=== PATIENT | male | born 1980 | race Caucasian/White ===

== ENCOUNTER 2019-12-21 12:29 | Emergency (ER) | payer SELFPAY ==
--- NOTE | ~2019-12-21 | XR_ITS ---
EXAMINATION: XR knee LT 3V DATE: 12/21/2019 13:17 INDICATION: Left knee injury TECHNIQUE: Anteroposterior, 2 oblique and crosstable lateral views of the left knee were obtained COMPARISON: None. FINDINGS: Alignment is normal. No fracture. Moderate-sized left knee joint effusion without layering lipohemar throsis. Soft tissues are unremarkable. IMPRESSION: 1. Moderate-sized left knee joint effusion without evident osseous abnormality. Reviewed, dictated and finalized at location A.
[2019-12-21 12:44] VITALS: BP 125/72; PULSE 72; RESP 16; TEMP 36.6; O2SAT 100
--- NOTE | 2019-12-21 13:00 | ED.LOWEXIN ---
HPI - Extremity Injury (Lower) General Chief Complaint: Extremity Injury, Lower Stated Complaint: L KNEE PAIN X TD Time Seen by Provider: 12/21/19 12:50 Source: patient and RN notes reviewed Mode of arrival: ambulatory Limitations: no limitations History of Present Illness HPI Narrative: Pt is a 39 y/o male who presents to the ED with c/o lt knee injury happening this morning. 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 Pt states that when he stood up this morning, he felt what he described as a rubber band stretching in his lt knee. He notes that he has had pain in his lt knee ever since the incident, stating that the majority of his pain is located in his medial and lateral lt knee. Pt denies any numbness/tingling or other symptoms. He states that he took 2 Tylenol roughly 45 minutes ago for his pain, but denies having any relief. MD complaint: knee injury Onset (ago): day(s) (1) Injury: Left: knee Place: home Relieving factors: nothing Context: other (standing up) Associated symptoms: other (lt knee pain) Other symptoms: none Treatments prior to arrival: other (Tylenol) Related Data Home Medications Medication Instructions Recorded Confirmed No Home Medications 12/21/19 12/21/19 Allergies Allergy/AdvReac Type Severity Reaction Status Date / Time SHELLFISH Allergy Unknown Uncoded 12/21/19 13:24 BOLOGNA AdvReac Unknown Uncoded 12/21/19 13:24 Review of Systems Review of Systems: All systems reviewed & are unremarkable except as noted in HPI and below Musculoskeletal: Musculoskeletal: Reports arthralgias (lt knee pain) Neurologic: Denies numbness and Denies tingling PMFSH Past Medical History Medical History Umbilical hernia Surgical History Surgical History History of testicular surgery Hx of appendectomy Hx of cholecystectomy Hx of umbilical hernia repair Social History Social History Smoking packs per day: 1 Smoking cigarettes per day: 20.0 Smoking status: Current every day smoker Exam Narrative: Exam Narrative: General appearance: Well-developed, well-nourished Skin: Normal color Chest and respiratory: Airway patent, no respiratory distress, no accessory muscle use Heart: Regular rate/rhythm Musculoskeletal: Slight diffuse tenderness of left knee, slight swelling, no bruises, no deformity, limited range of motion. Neurologic: Alert and oriented ?3, ROLL TENSION TESTER is normal as tested, no gross motor deficit Course Course Emergency Course: Unchanged Vital Signs Vital signs: Vital Signs Temperature 36.6 C 12/21/19 12:44 Pulse Rate 72 12/21/19 12:44 Respiratory Rate 16 12/21/19 12:44 Blood Pressure 125/72 12/21/19 12:44 Pulse Oximetry 100 12/21/19 12:44 Temperature 36.6 C 12/21/19 12:44 Pulse Rate 72 12/21/19 12:44 Respiratory Rate 16 12/21/19 12:44 Blood Pressure 125/72 12/21/19 12:44 Pulse Oximetry 100 12/21/19 12:44 Procedures Joint Aspiration/Injection Joint Asp./Inject. 1: Joint Aspiration Date: 12/21/19 Joint Aspiration Time: 14:47 Time Out Performed: Yes (30 minutes) Side of body: left Joint Aspirated: knee Ultrasound Guidance: No Skin Prep: sterile prep and drape Local Anesthetic: lidocaine 1% and with epi Amount of anesthesia used (mL): 5 Needle Size Used: 18G Fluid Obtained: bloody Total fluid obtained (mL): 12 Additional Comments: Patient tolerated the procedure well MDM - Extremity Injury (Lower) MDM Narrative Medical decision making narrative: History
[2019-12-21] MEDS: ACETAMINOPHEN 325 MG TABLET 650 MG PO (13:20)
[2019-12-21] MEDS: IBUPROFEN 600 MG TABLET PO (13:21)
--- NOTE | 2019-12-21 14:11 | PC.NURSE ---
PT C/O CONTINUED PAIN IN THE AFFECTED KNEE. VERBAL ORDER FOR 5-325 NORCO STAT.
--- NOTE | 2019-12-21 14:39 | PC.NURSE ---
VIKAS FLETCHER AT BEDSIDE DRAINING PT KNEE.
[2019-12-21 15:04] VITALS: BP 138/75; PULSE 78; RESP 18; O2SAT 100
--- NOTE | 2019-12-21 15:04 | PC.NURSE ---
KNEE FLUID SENT TO LAB.
[2019-12-21 15:58] LABS: Crystals Synovial Fluid None Seen (None Seen)
[2019-12-21 15:59] LABS: Appearance Synovial Fluid Bloody (Clear); Color Synovial Fluid Red (Colorless); Source Synovial Fluid Synovial fluid
[2019-12-21 16:01] LABS: Lymphocytes Synovial Fluid 1 %; Monocytes Synovial Fluid 3 %; Neutrophils Synovial Fluid 96 % (0-25)
[2019-12-23 12:00] LABS: Glucose Synovial Fluid 57 mg/dL
== END 2019-12-21 15:05 | disposition home or self-care (01) ==
PROVIDERS: Emergency Provider Emergency Medicine
DX: S83.92XA Sprain of unspecified site of left knee, initial encounter (principal); M25.469 Effusion, unspecified knee; X58.XXXA Exposure to other specified factors, initial encounter
CPT/HCPCS: 20610; 73562; 82945; 88108; 89051; 89060; 99283; A9270

== ENCOUNTER 2020-01-21 14:34 | Emergency (ER) | payer OTHER, SELFPAY ==
--- NOTE | ~2020-01-21 | XR_ITS ---
XR chest 2V DATE: 01/21/2020 15:34 INDICATION: Cough, sinus pressure, sore throat TECHNIQUE: PA and lateral views COMPARISON: None FINDINGS: Normal heart size. No hilar or mediastinal enlargement. No pulmonary infiltrate or consolid ation, pleural effusion or pulmonary vascular congestion or pneumothorax. Surgical clips, right upper quadrant, consistent with cholecystectomy. IMPRESSION: No active cardiopulmonary disease Status post cholecystectomy Reviewed, dictated and finalized at location A.
[2020-01-21 14:39] VITALS: BP 118/86; PULSE 98; RESP 20; TEMP 37.1; O2SAT 98
--- NOTE | 2020-01-21 14:55 | ED.URI ---
HPI - URI/Sore Throat General Chief Complaint: Weakness Stated Complaint: chills/st/diff breathing Time Seen by Provider: 01/21/20 14:38 History of Present Illness HPI Narrative: Pt c/o sob, cough, nasal congestion, subjective fever chills, and fatigue started today. Exacerbating factors: nothing Relieving factors: nothing Treatments prior to arrival: none Related Data Allergies Allergy/AdvReac Type Severity Reaction Status Date / Time SHELLFISH Allergy Unknown Uncoded 12/21/19 13:24 BOLOGNA AdvReac Unknown Uncoded 12/21/19 13:24 Review of Systems Review of Systems: All systems reviewed & are unremarkable except as noted in HPI and below Constitutional: Constitutional: Denies body ache(s), Denies excessive sweating, Denies headache(s), Denies lethargy, Denies malaise, Denies weakness and Denies weight loss Eyes: Eyes: Denies blurry vision, Denies change in vision and Denies loss of vision ENT: Denies dizziness, Denies ear discharge, Denies headache(s), Denies lip swelling, Denies epistaxis, Denies nasal congestion, Denies neck pain, Denies throat swelling and Denies tongue swelling Cardiovascular: Cardiovascular: Denies chest pain, Denies chest pain at rest, Denies chest pain with activity, Denies diaphoresis, Denies rapid heart rate, Denies edema, Denies irregular heart rhythm, Denies lightheadedness, Denies palpitations and Denies dyspnea on exertion Respiratory: Respiratory: Denies chest congestion, Denies cough, Denies hemoptysis and Denies dyspnea on exertion Gastrointestinal: Gastrointestinal: Denies abdominal pain, Denies melena, Denies hematochezia, Denies diarrhea, Denies nausea, Denies vomiting and Denies hematemesis Musculoskeletal: Musculoskeletal: Denies abnormal gait, Denies deformity, Denies joint swelling, Denies limited range of motion, Denies neck pain and Denies numbness Neurologic: Denies Abnormal speech present, Denies abnormal gait, Denies confusion, Denies dizziness, Denies headache(s), Denies focal weakness, Denies loss of vision, Denies numbness, Denies Other visual disturbances, Denies Sensory deficit (Neuro) and Denies weakness Psychiatric: Psychiatric: Denies confusion, Denies depression, Denies auditory hallucinations, Denies homicidal ideation and Denies suicidal ideation Endocrine: Endocrine: Denies cold intolerance, Denies excessive sweating, Denies fatigue, Denies heat intolerance and Denies palpitations Hematologic/Lymphatic: Hematologic/Lymphatic: Denies easy bleeding and Denies easy bruising Allergic/Immunologic: Allergic/Immunologic: Denies lip swelling, Denies throat swelling and Denies tongue swelling [facility] Social History Social History Smoking packs per day: 1 Smoking cigarettes per day: 20.0 Smoking status: Current every day smoker Gender identity (if verbalized by the patient): Male Exam Const: General: cooperative, healthy appearing, comfortable, no acute distress, well developed, alert and awake; No confusion Orientation/consciousness: oriented to person, oriented to place, oriented to time, patient oriented x3 and No confusion Limitations: no limitations HENMT: Head: normal to inspection, normocephalic and atraumatic Ears: hearing grossly normal bilaterally, TM normal on the right and TM normal on the left General nose exam: Normal external nose present, Normal nares present and No nasal discharge present Face and sinus: normal facial exam Mouth: Yes Normal oral and palatal mucosa present, Yes lip normal, Yes tongue normal and Yes oropharynx normal Throat: posterior oropharynx normal, tonsils normal and uvula midline Eyes: General: appearance normal, both eyes and all related structures Pupils: Equal, round and reactive pupils present EOM: EOMs intact bilaterally Neck: Neck: normal visual inspection, full ROM, no lymphadenopathy and no meningeal signs Chest: Chest palpation & inspection: normal inspection of the ches
--- NOTE | 2020-01-21 16:09 | ECG_ITS ---
Measurements Intervals [place] Rate: 99 P: 57 [place]: 145 QRS: 47 QRSD: 106 T: 28 QT: 317 QTc: 408 Interpretive Statements SINUS RHYTHM POSSIBLE LEFT ATRIAL ENLARGEMENT INCOMPLETE RIGHT BUNDLE BRANCH BLOCK BASELINE WANDER- I, II, AVR BORDERLINE ECG Electronically Signed On 01-21-2020 16:32:15 CDT by Kong Gipson D.O.
[2020-01-21 16:10] VITALS: BP 156/84; PULSE 88; RESP 16; O2SAT 98
[2020-01-22 08:04] LABS: SARS-CoV-2 RNA PCR Negative
== END 2020-01-21 16:11 | disposition home or self-care (01) ==
PROVIDERS: Emergency Provider Emergency Medicine
DX: B34.9 Viral infection, unspecified (principal); Z20.828 Contact with and (suspected) exposure to other viral communicable diseases; F17.210 Nicotine dependence, cigarettes, uncomplicated; I45.10 Unspecified right bundle-branch block; R94.31 Abnormal electrocardiogram [ECG] [EKG]
CPT/HCPCS: 71046; 87635; 93005; 99283; C9803; U0003

== ENCOUNTER 2020-04-02 11:51 | Emergency (ER) | payer SELFPAY ==
[2020-04-02 12:02] VITALS: BP 125/103; PULSE 84; RESP 18; TEMP 37.3; O2SAT 100
[2020-04-02] MEDS: cefTRIAXone 250 MG VIAL IM (12:57)
[2020-04-02] MEDS: LIDOCAINE HCL 1% LOCAL INJ 20 ML VIAL (12:57)
[2020-04-02] MEDS: AZITHROMYCIN 250 MG TABLET 1000 MG PO (12:57)
[2020-04-02] MEDS: metroNIDAZOLE 250 MG TABLET 2000 MG PO (13:00)
[2020-04-02 13:02] LABS: Add Urine Microscopic? YES; Appearance Urine Cloudy (Clear); Bilirubin Urine Negative (Negative); Blood Urine 1+ (Negative); Color Urine Yellow (Yellow); Glucose Urine UA Negative (Negative); Ketones Urine Negative (Negative); Leukocyte Esterase Ur 3+ LEU/UL (Negative); Mucus Urine Rare /lpf; Nitrate Urine Negative (Negative); Protein Urine Negative (Negative); Specific Grav Ur 1.025 (1.001-1.035); Squamous Epithelial Cell Urine Rare /hpf (Few); Urobilinogen Urine Negative mg/dL (<2.0); WBC Urine >75 /hpf
--- NOTE | 2020-04-02 14:02 | ED.GENADULT ---
HPI - General Adult General Chief complaint: Unspecified Stated complaint: midget in my pants kicking me in the balls Time Seen by Provider: 04/02/20 12:36 Source: patient Mode of arrival: ambulatory Limitations: no limitations History of Present Illness HPI narrative: Patient is a 39-year-old male who presents to emergency department for evaluation concerning STD symptoms noting discharge and pain in the testicles after having intercourse with his last night who has been in another relationship that he found out recently patient upon presentation to emergency department notes he would like to be tested and treated denies similar occurrence in the past or other symptoms Related Data Home Medications Medication Instructions Recorded Confirmed No Home Medications 04/02/20 04/02/20 Allergies Allergy/AdvReac Type Severity Reaction Status Date / Time SHELLFISH Allergy Unknown Uncoded 04/02/20 12:06 BOLOGNA AdvReac Unknown Uncoded 04/02/20 12:06 Review of Systems Review of Systems: All systems reviewed & are unremarkable except as noted in HPI and below PMFSH Past Medical History Medical History Umbilical hernia Surgical History Surgical History History of testicular surgery Hx of appendectomy Hx of cholecystectomy Hx of umbilical hernia repair Social History Social History Smoking packs per day: 1 Smoking cigarettes per day: 20.0 Smoking status: Current every day smoker Gender identity (if verbalized by the patient): Male Exam Narrative: Exam Narrative: GENERAL: Well-appearing, well-nourished, and in no acute distress. HEAD: Normocephalic, atraumatic. EYES: PERRLA and EOMI. ENT: Nares clear, no rhinorrhea or epistaxis. Mucous membranes moist. CHEST: Clear to auscultation. No respiratory distress. No wheezes rales or rhonchi HEART: Regular rate and rhythm. No murmur heard. Normal peripheral pulses. ABDOMEN: Soft, nontender, nondistended EXTREMITIES: Normal range of motion. No edema. SKIN: Warm, dry, no rash. NEURO: No focal deficits. Alert and oriented x3. cranial nerves II through XII grossly intact PSYCH: Normal mood and affect. Course Course Emergency Course: Patient in the room at this time aware of case findings treatment plan and diagnosis was tested and treated given referral for primary care and urology Vital Signs Vital signs: Vital Signs Temperature 99.1 F 04/02/20 12:02 Pulse Rate 84 04/02/20 12:02 Respiratory Rate 18 04/02/20 12:02 Blood Pressure 125/103 H 04/02/20 12:02 Pulse Oximetry 100 04/02/20 12:02 Temperature 99.1 F 04/02/20 12:02 Pulse Rate 84 04/02/20 12:02 Respiratory Rate 18 04/02/20 12:02 Blood Pressure 125/103 H 04/02/20 12:02 Pulse Oximetry 100 04/02/20 12:02 Medical Decision Making MDM Narrative Medical decision making narrative: Patient tested and treated for STDs advised to follow with primary care and urology for further testing considerations and for follow-up Vital Signs Vital Signs: Vital Signs Temperature 99.1 F 04/02/20 12:02 Pulse Rate 84 04/02/20 12:02 Respiratory Rate 18 04/02/20 12:02 Blood Pressure 125/103 H 04/02/20 12:02 Pulse Oximetry 100 04/02/20 12:02 Temperature 99.1 F 04/02/20 12:02 Pulse Rate 84 04/02/20 12:02 Respiratory Rate 18 04/02/20 12:02 Blood Pressure 125/103 H 04/02/20 12:02 Pulse Oximetry 100 04/02/20 12:02 Lab Data Labs: Lab Results 04/02/20 04/02/20 Range/Units 12:45 12:45 Urine Color Yellow (Yellow) Urine Appearance Cloudy H (Clear) Urine pH 5.0 (5.0-9.0) Ur Specific [place] 1.025 (1.001-1.035) Urine Protein Negative (Negative) mg/dL Urine Glucose (UA) Negative (Negative) mg/dL Urine Ketones Negative (Negative) mg/dL Ur Blood (Ma
--- NOTE | 2020-04-02 15:02 | PC.NURSE ---
This RN back into room to explain that because pt had emesis earlier will send home on a prescription, and pt has left the building. Call to pt's home number listed and states that number is not available. Pt's second listed number contacted at [phone]. Woman answers, hands the phone to another person who claims to be the patient. Explained medications are available at the pharmacy listed. The patient answers thank you and is clearly someone pretending to be the patient. This RN hung up on caller. Note the patient leaving the waiting room and walking around outside. Explained to the patient that the prescription is available at the pharmacy and that the number I called was clearly not him. Pt verb understanding.
== END 2020-04-02 14:55 | disposition home or self-care (01) ==
PROVIDERS: Emergency Medicine Emergency Medical Services; Emergency Provider Emergency Medicine
DX: N34.2 Other urethritis (principal); F17.210 Nicotine dependence, cigarettes, uncomplicated
CPT/HCPCS: 81001; 87086; 87491; 87591; 96372; 99283; A9270; J0696

== ENCOUNTER 2020-08-10 19:34 | Emergency (ER) | payer OTHER, SELFPAY ==
--- NOTE | ~2020-08-10 | XR_ITS ---
EXAMINATION: XR chest 1V portable DATE: 08/10/2020 20:39 INDICATION: Cough, shortness of breath and fever TECHNIQUE: frontal view of the chest was obtained. COMPARISON: Chest radiograph dated 01/21/2020 FINDINGS: Unchanged minimal linear atelectasis/scarring near the left costophrenic angle. No new airspace opaci ties, pulmonary edema, pleural effusion or pneumothorax. The cardiomediastinal silhouette is normal. Visualized bones and soft tissues are unremarkable. IMPRESSION: 1. No acute cardiopulmonary disease. Reviewed, dictated and finalized at location H. L RECORDS CLERK
[2020-08-10 19:39] VITALS: BP 124/62; PULSE 93; RESP 18; TEMP 37.4; O2SAT 96
[2020-08-10 21:02] LABS: Basophils Percent Auto 0.3 % (0.2-1.2); Eosinophils Percent Auto 0.1 % (0-4.4); Hematocrit 41.2 % (42.0-52.0); Hemoglobin 14.2 g/dL (14.0-18.0); Immature Granulocyte Absolute 0.04 K/mm3 (0.00-0.031); Immature Granulocyte Percent A 0.3 % (0-0.5); Lymphocytes Absolute Auto 0.79 K/mm3 (0.9-3.2); Lymphocytes Percent Auto 6.1 % (18.3-44.2); Mean Corpuscular HGB Conc 34.5 g/dl (32-36); Mean Corpuscular Hemoglobin 30.1 pg (26-34); Mean Corpuscular Volume 87.3 fl (80-100); Mean Platelet Volume 10.4 fl (7.4-10.4); Monocytes Absolute Auto 0.7 K/mm3 (0.1-0.6); Monocytes Percent Auto 5.7 % (2.6-8.5); Neutrophils Absolute Auto 11.3 K/mm3 (1.3-6.7); Neutrophils Percent Auto 87.5 % (45.5-73.1); Platelet Count Result 188 k/mm3 (150-375); Red Blood Count 4.72 M/mm3 (4.6-6.20); Red Cell Distribution Width 13.4 % (11.5-14.5)
[2020-08-10 21:18] LABS: Add Urine Microscopic? YES; Appearance Urine Clear (Clear); Bacteria Urine Trace /hpf; Bilirubin Urine Negative (Negative); Blood Urine Negative (Negative); Color Urine Yellow (Yellow); Glucose Urine UA Negative (Negative); Ketones Urine Negative (Negative); Leukocyte Esterase Ur Negative LEU/UL (Negative); Mucus Urine Rare /lpf; Nitrate Urine Negative (Negative); Protein Urine 1+ mg/dL (Negative); RBC Urine 0-2 /hpf (0-2); Specific Grav Ur 1.025 (1.001-1.035); Urobilinogen Urine Negative mg/dL (<2.0); WBC Urine 0-3 /hpf
[2020-08-10 21:20] LABS: Alanine Aminotransferase 41 U/L (4-50); Albumin Level 4.3 g/dL (3.5-5.1); Alkaline Phosphatase 88 U/L (38-126); Anion Gap 9 mmol/L (8-16); Aspartate Amino Transferase 41 U/L (17-59); Bilirubin,Total 0.5 mg/dL (0.2-1.3); Blood Urea Nitrogen 14 mg/dL (9-20); Calcium 9.1 mg/dL (8.4-10.2); Carbon Dioxide 26 mmol/L (22-30); Chloride 99 mmol/L (98-107); Estimated CRCL calculation 97 ml/min; Estimated Glomerular Filt Rate > 60; Glucose 114 mg/dL (75-110); Sodium 134 mmol/L (137-145)
--- NOTE | 2020-08-10 21:23 | ED.FEVER ---
HPI - Fever General Chief Complaint: Fever Stated Complaint: fever; FUENTES; Sz; Dehydrated; Weak Time Seen by Provider: 08/10/20 19:46 Source: patient Mode of arrival: ambulatory Limitations: no limitations History of Present Illness HPI Narrative: 39-year-old male Complains of a 1 day history of fevers to as much as 104 degrees He has a mild sore throat epigastric abdominal pain and nausea and body aches No vomiting no diarrhea no urinary symptoms not coughing Not around anybody with similar symptoms that he knows of MD elicited complaint: fever and malaise Related Data Allergies Allergy/AdvReac Type Severity Reaction Status Date / Time SHELLFISH Allergy Unknown Uncoded 04/02/20 12:06 BOLOGNA AdvReac Unknown Uncoded 04/02/20 12:06 Review of Systems Review of Systems: All systems reviewed & are unremarkable except as noted in HPI and below Constitutional: Constitutional: Reports chills, Reports fatigue, Reports fever(s), Denies headache(s) and Denies weakness Eyes: Eyes: Reports no additional eye complaints and Denies change in vision ENT: Denies headache(s), Denies epistaxis, Denies nasal congestion and Reports sore throat Cardiovascular: Cardiovascular: Denies chest pain, Denies leg edema, Denies palpitations and Denies dyspnea Respiratory: Respiratory: Denies cough and Denies dyspnea Gastrointestinal: Gastrointestinal: Reports abdominal pain, Denies diarrhea, Reports nausea and Denies vomiting Genitourinary: Genitourinary: Denies hematuria, Denies dysuria and Denies urinary frequency Musculoskeletal: Musculoskeletal: Reports myalgias, Denies deformity, Denies arthralgias, Denies joint swelling, Denies muscle weakness and Denies numbness Integumentary/Breasts: Skin/Breast: Denies rash and Denies wounds Neurologic: Reports headache(s), Denies focal weakness, Denies numbness and Denies weakness Psychiatric: Psychiatric: Reports no additional psychiatric complaints Endocrine: Endocrine: Denies fatigue and Denies palpitations Hematologic/Lymphatic: Hematologic/Lymphatic: Denies easy bleeding and Denies easy bruising Allergic/Immunologic: Allergic/Immunologic: Denies wheezing PMFSH Past Medical History Medical History (Updated 08/10/20 @ 22:27 by Vinicio Estes MD) Umbilical hernia Surgical History Surgical History History of testicular surgery Hx of appendectomy Hx of cholecystectomy Hx of umbilical hernia repair Social History Social History Smoking packs per day: 1 Smoking cigarettes per day: 20.0 Smoking status: Current every day smoker Gender identity (if verbalized by the patient): Male Exam Const: General: no acute distress, well developed and awake Nutritional Appearance: well nourished Orientation/consciousness: patient oriented x3 (alert) Limitations: no limitations HENMT: Head: normocephalic and atraumatic Ears: external ears normal General nose exam: No nasal discharge present and no epistaxis Face and sinus: face symmetric Mouth: Yes moist mucous membranes Throat: posterior oropharynx normal Eyes: Conjunctivae: conjunctivae normal Sclera: sclerae normal EOM: EOMs intact bilaterally Neck: Neck: normal visual inspection, no lymphadenopathy, supple and no JVD Chest: Chest palpation & inspection: deferred Resp: Effort & Inspection: normal respiratory effort Auscultation: clear to auscultation bilaterally, no rales, no rhonchi, no wheezes and other (BS =) Cardio: Rate: regular rate Rhythm: regular rhythm Heart sounds: no gallops and no murmurs GI: Inspection: normal to inspection GI Palp: Yes Soft to palpation, Yes Tenderness to palpation present (GI) (Mild, epigastric), No Guarding due to palpation present (GI) and No Rebound tenderness present : General: Yes no CVA tenderness Back/Spine/Pelvis: Back: no CVA tenderness Thoracic/Lumbar Spine:
[2020-08-10] MEDS: LACTATED RINGERS 1,000 ML 999 ML IV CONT (21:34)
[2020-08-10] MEDS: ACETAMINOPHEN 500 MG TABLET 1000 MG PO (21:35)
[2020-08-10 22:37] VITALS: BP 116/61; PULSE 94; RESP 18; TEMP 37.2; O2SAT 99
[2020-08-11 14:03] LABS: SARS-CoV-2 RNA PCR Positive
== END 2020-08-10 22:37 | disposition home or self-care (01) ==
PROVIDERS: Emergency Provider Emergency Medicine
DX: U07.1 COVID-19 (principal); R50.9 Fever, unspecified; F17.210 Nicotine dependence, cigarettes, uncomplicated
CPT/HCPCS: 36415; 71045; 80053; 81001; 85025; 87070; 87147; 87635; 87804; 87880; 96360; 99283; A9270; C9803; J7120; U0003

== ENCOUNTER 2020-10-06 22:02 | Emergency (ER) | payer SELFPAY ==
--- NOTE | ~2020-10-06 | CT_ITS ---
EXAMINATION: CT abdomen pelvis w con DATE: 10/06/2020 23:25 INDICATION: Lower abdominal pain. TECHNIQUE: Computed tomography (CT) of the abdomen and pelvis was performed with 100 mL Omnipaque-350 intravenous contrast. Automated exposure control and iterative reconstruction technique were employe d. The dose-length product was 598.66 mGy-cm. COMPARISON: None FINDINGS: 4 mm right lower lobe nodule. Heart size is normal. No pericardial or pleural effusion. Cholecystecto my clips at the gallbladder fossa. Liver, spleen, pancreas, bilateral adrenal glands and kidneys are normal. Postoperative changes at the cecum with nonvisualized appendix consistent with prior appendec aurea. No abnormal bowel wall thickening or obstruction. Decompressed bladder is normal. Tiny fat-cont aining left inguinal hernia. No free intraperitoneal gas or fluid. No pathologically enlarged abdomin al or pelvic lymphadenopathy. A few small scattered bone islands at the pelvis and proximal femurs. IMPRESSION: 1. No acute intra-abdominal/pelvic process. Reviewed, dictated and finalized at location A. STAMPER
[2020-10-06 22:04] VITALS: BP 128/80; PULSE 91; RESP 14; TEMP 36.8; O2SAT 94
[2020-10-06 22:44] LABS: Basophils Absolute Auto 0.1 K/mm3 (0.0-0.1); Basophils Percent Auto 0.6 % (0.2-1.2); Eosinophils Absolute Auto 0.2 K/mm3 (0-0.3); Hematocrit 44.1 % (42.0-52.0); Hemoglobin 15.2 g/dL (14.0-18.0); Immature Granulocyte Absolute 0.02 K/mm3 (0.00-0.031); Immature Granulocyte Percent A 0.2 % (0-0.5); Lymphocytes Absolute Auto 3.45 K/mm3 (0.9-3.2); Lymphocytes Percent Auto 38.9 % (18.3-44.2); Mean Corpuscular HGB Conc 34.5 g/dl (32-36); Mean Corpuscular Hemoglobin 30.1 pg (26-34); Mean Corpuscular Volume 87.3 fl (80-100); Mean Platelet Volume 10.4 fl (7.4-10.4); Monocytes Absolute Auto 0.6 K/mm3 (0.1-0.6); Monocytes Percent Auto 6.2 % (2.6-8.5); Neutrophils Absolute Auto 4.6 K/mm3 (1.3-6.7); Neutrophils Percent Auto 52.1 % (45.5-73.1); Platelet Count Result 214 k/mm3 (150-375); Red Blood Count 5.05 M/mm3 (4.6-6.20); Red Cell Distribution Width 13.2 % (11.5-14.5); White Blood Count 8.9 K/mm3 (4.5-10.0)
[2020-10-06 22:48] LABS: Add Urine Microscopic? YES; Appearance Urine Clear (Clear); Bacteria Urine Trace /hpf; Bilirubin Urine Negative (Negative); Blood Urine Negative (Negative); Color Urine Yellow (Yellow); Glucose Urine UA Negative (Negative); Ketones Urine Negative (Negative); Leukocyte Esterase Ur Trace LEU/UL (Negative); Mucus Urine Few /lpf; Nitrate Urine Negative (Negative); Protein Urine 1+ mg/dL (Negative); RBC Urine 0-2 /hpf (0-2); Squamous Epithelial Cell Urine Rare /hpf (Few)
--- NOTE | 2020-10-06 22:52 | ED.ABDPAIN ---
HPI - Abdominal Pain General Chief Complaint: Abdominal Pain Stated Complaint: abd pain Time Seen by Provider: 10/06/20 22:39 History of Present Illness HPI narrative: 39 yo male w/ h/o IBS, appendectomy, cholecystectomy presents to the ED for abdominal pain. Lower abdominal pain for the past 4 days. Cramping in quality. Radiates to the right arm. Associated with nausea and diarrhea. Recently recovered from COVID-19, which he reports was largely asymptomatic. No fever, vomiting, chest pain, SOB. Related Data Allergies Allergy/AdvReac Type Severity Reaction Status Date / Time SHELLFISH Allergy Unknown Uncoded 04/02/20 12:06 BOLOGNA AdvReac Unknown Uncoded 04/02/20 12:06 Review of Systems Review of Systems: All systems reviewed & are unremarkable except as noted in HPI and below Constitutional: Constitutional: Denies fever(s) and Denies weakness ENT: Denies sore throat Cardiovascular: Cardiovascular: Denies chest pain Respiratory: Respiratory: Denies dyspnea Gastrointestinal: Gastrointestinal: Reports abdominal pain, Reports diarrhea, Reports nausea and Denies vomiting Genitourinary: Genitourinary: Denies hematuria and Denies dysuria Musculoskeletal: Musculoskeletal: Denies back pain Neurologic: Denies numbness and Denies weakness [facility] Past Medical History Medical History (Updated 10/07/20 @ 00:12 by Samir Jade MD) Umbilical hernia Surgical History Surgical History History of testicular surgery Hx of appendectomy Hx of cholecystectomy Hx of umbilical hernia repair Social History Social History Smoking packs per day: 1 Smoking cigarettes per day: 20.0 Smoking status: Current every day smoker Gender identity (if verbalized by the patient): Male Exam Const: General: healthy appearing, no acute distress and alert Orientation/consciousness: patient oriented x3 HENMT: Head: normal to inspection Resp: Effort & Inspection: normal respiratory effort Auscultation: clear to auscultation bilaterally Cardio: Rate: regular rate Rhythm: regular rhythm GI: Inspection: non-distended GI Palp: Yes Soft to palpation, Yes Tenderness to palpation present (GI) (diffuse, mild), No Guarding due to palpation present (GI) and No Rebound tenderness present Auscultation: normal bowel sounds Skin: General skin exam: normal color Neuro: General: patient oriented x3, moves all extremities and CN's II-XI intact bilaterally Speech: normal speech Gait exam (Neuro): Normal gait present Extrem: General: normal to inspection and no edema Course Vital Signs Vital signs: Vital Signs Temperature 36.8 C 10/06/20 22:04 Pulse Rate 91 10/06/20 22:04 Respiratory Rate 14 10/06/20 22:04 Blood Pressure 128/80 10/06/20 22:04 Pulse Oximetry 94 10/06/20 22:04 Temperature 36.8 C 10/07/20 00:28 Pulse Rate 78 10/07/20 00:28 Respiratory Rate 16 10/07/20 00:28 Blood Pressure 124/86 10/07/20 00:28 Pulse Oximetry 98 10/07/20 00:28 MDM - Abdominal Pain MDM Narrative Medical decision making narrative: He did not complain of any symptoms, but UA shows WBCs and on chart review he recently tested positive for gonorrhea. He was likely either incompletely treated or reinfected. I will treat empirically. Medical Records Attestation: I reviewed the patient's medical records. Lab Data Attestation: I reviewed the patient's lab results. Result diagrams: 10/06/20 22:29 10/06/20 22:29 Labs: Lab Results 10/06/20 10/06/20 10/06/20 Range/Units 22:29 22:29 22:33 WBC 8.9 (4.5-10.0) K/mm3 RBC 5.05 (4.6-6.20) M/mm3 Hgb 15.2 (14.0-18.0) g/dL Hct 44.1 (42.0-52.0) % MCV 87.3 (80-100) fl MCH 30.1 (26-34) pg MCHC 34.5 (32-36) g/dl RDW 13.2 (11.5-14.5) % Plt Count 214 (150-375) k/mm3 MPV 10.4 (7.4-10.4
[2020-10-06 22:56] LABS: Alanine Aminotransferase 38 U/L (4-50); Albumin Level 3.8 g/dL (3.5-5.1); Alkaline Phosphatase 66 U/L (38-126); Anion Gap 5 mmol/L (8-16); Aspartate Amino Transferase 30 U/L (17-59); Bilirubin,Total 0.3 mg/dL (0.2-1.3); Blood Urea Nitrogen 13 mg/dL (9-20); Calcium 8.7 mg/dL (8.4-10.2); Carbon Dioxide 27 mmol/L (22-30); Chloride 105 mmol/L (98-107); Estimated CRCL calculation 89 ml/min; Estimated Glomerular Filt Rate > 60; Glucose 122 mg/dL (75-110); Lipase 132 U/L (23-300); Potassium 3.8 mmol/L (3.4-5.0); Sodium 137 mmol/L (137-145)
[2020-10-06] MEDS: SODIUM CHLORIDE 0.9% IV 1,000 ML 999 ML (22:59)
[2020-10-07] MEDS: cefTRIAXone 250 MG VIAL 500 MG IM (00:20)
[2020-10-07] MEDS: DOXYCYCLINE HYCLATE 100 MG TABLET PO (00:21)
[2020-10-07 00:28] VITALS: BP 124/86; PULSE 78; RESP 16; TEMP 36.8; O2SAT 98
== END 2020-10-07 00:29 | disposition home or self-care (01) ==
PROVIDERS: Emergency Provider Emergency Medicine
DX: N39.0 Urinary tract infection, site not specified (principal); Z86.16 Personal history of COVID-19; F17.210 Nicotine dependence, cigarettes, uncomplicated
CPT/HCPCS: 36415; 74177; 80053; 81001; 83690; 85025; 87086; 96361; 96374; 99284; A9270; J0696; J7030; Q9967

== ENCOUNTER 2023-01-15 18:49 | Emergency (ER) | payer OTHER, SELFPAY ==
[2023-01-15 19:04] VITALS: BP 114/60; PULSE 71; RESP 16; TEMP 36.8; O2SAT 98
[2023-01-15] MEDS: methocarbamoL 750 MG TABLET 1500 MG PO (22:19)
[2023-01-15] MEDS: HYDROcodone/acetaminophen (*CRX) 5-325 MG TABLET 2 TAB PO (22:20)
[2023-01-15] MEDS: IBUPROFEN 400 MG TABLET 800 MG PO (22:20)
--- NOTE | 2023-01-15 22:35 | ED.GENADULT ---
HPI - General Adult General Chief complaint: Abdominal Pain Stated complaint: lower abdominal pain Time Seen by Provider: 01/15/23 21:39 History of Present Illness HPI narrative: 42-year-old male presenting ED a chief complaint of groin pain. Patient says he was lifting heavy object at work when he felt a pop in his right groin. He now has some pain. He has not taken anything for pain control. Patient has had a bowel movement and urinated since this happened. He notes no overlying skin changes or palpable mass. Related Data Allergies Allergy/AdvReac Type Severity Reaction Status Date / Time SHELLFISH Allergy Unknown Uncoded 01/15/23 18:51 BOLOGNA AdvReac Unknown Uncoded 01/15/23 18:51 [facility] Past Medical History Medical History (Updated 01/15/23 @ 23:10 by Luis Fernando Jennings MD) Umbilical hernia Surgical History Surgical History History of testicular surgery Hx of appendectomy Hx of cholecystectomy Hx of umbilical hernia repair Social History Social History Smoking packs per day: 1 Smoking cigarettes per day: 20.0 Smoking status: Current every day smoker Gender identity (if verbalized by the patient): Male Exam Narrative: APPEARANCE: No apparent distress. Head: atraumatic. EYES: EOMI, NOSE: Atraumatic NECK: Trachea midline RESPIRATORY: No increased rate of breathing CARDIOVASCULAR: RRR, ABDOMINAL: is soft nontender no guarding or rebound MUSCULOSKELETAl: focal exam revealed no overlying skin changes in the right groin. Femoral pulses and pedal pulses are intact. No swelling. No bruising. hip extension flexion abduction and adduction are intact. No evidence of hernia on exam NEURO: Alert. Moving 4/4 extremities SKIN:: Warm, dry. Normal color PSYCHIATRIC: Normal affect Course Vital Signs Vital signs: Vital Signs Temperature 98.2 F 01/15/23 19:04 Pulse Rate 71 01/15/23 19:04 Respiratory Rate 16 01/15/23 19:04 Blood Pressure 114/60 01/15/23 19:04 Pulse Oximetry 98 01/15/23 19:04 Oxygen Delivery Room Air 01/15/23 19:04 Temperature 98.2 F 01/15/23 19:04 Pulse Rate 71 01/15/23 19:04 Respiratory Rate 16 01/15/23 19:04 Blood Pressure 114/60 01/15/23 19:04 Pulse Oximetry 98 01/15/23 19:04 Oxygen Delivery Room Air 01/15/23 19:04 Medical Decision Making MDM Narrative Medical decision making narrative: -Presentation: 42-year-old presenting with groin pain after lifting heavy object -DDX includes but is not limited to: muscle strain, hernia -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 no evidence of vascular injury. Patient is able to have a bowel movement and urinate without difficulty. His abdominal exam is benign. He is able ambulate after pain medication. He will be given primary care follow-up. -RX Motrin, Tylenol, Robaxin, Alvada Vital Signs Vital Signs: Vital Signs Temperature 98.2 F 01/15/23 19:04 Pulse Rate 71 01/15/23 19:04 Respiratory Rate 16 01/15/23 19:04 Blood Pressure 114/60 01/15/23 19:04 Pulse Oximetry 98 01/15/23 19:04 Oxygen Delivery Room Air 01/15/23 19:04 Temperature 98.2 F 01/15/23 19:04 Pulse Rate 71 01/15/23 19:04 Respiratory Rate 16 01/15/23 19:04 Blood Pressure 114/60 01/15/23 19:04 Pulse Oximetry 98 01/15/23 19:04 Oxygen Delivery Room Air 01/15/23 19:04 Discharge Plan Disch
[2023-01-15 23:16] VITALS: BP 117/68; PULSE 69; RESP 18; O2SAT 100
== END 2023-01-15 23:17 | disposition home or self-care (01) ==
PROVIDERS: Emergency Provider Emergency Medicine
DX: S39.011A Strain of muscle, fascia and tendon of abdomen, initial encounter (principal); X50.0XXA Overexertion from strenuous movement or load, initial encounter
CPT/HCPCS: 99283; A9270

== ENCOUNTER 2023-10-29 18:04 | Emergency (ER) | payer BC, OTHER, SELFPAY ==
--- NOTE | ~2023-10-29 | CT_ITS ---
EXAMINATION: CT soft tissue neck w con DATE: 10/29/2023 20:42 INDICATION: Submandibular mass TECHNIQUE: Computed tomography (CT) of the neck was performed with 75 mL Omnipaque-350 intravenous co ntrast. Automated exposure control and iterative reconstruction technique were employed. The dose-mary gth product was 654.31 mGy-cm. COMPARISON: None FINDINGS: Thin-walled, simple appearing 3.6 cm cyst in the left neck, centered within the subcutaneous fat, shaggy p to and slightly displacing the sublingular structures, and anterior and distinct from the submandib ular space. Heterogeneous, enlarged thyroid. The submandibular and parotid glands are symmetric. There is no cervical lymphadenopathy. The superior mediastinum is unremarkable. The airway is unr emarkable. Parapharyngeal and pre-glottic fat planes are preserved. Normal enhancing neck vessels . The orbits are unremarkable. Inferior right maxillary mucosal thickening, the remaining aerated spaces are clear. Clear lungs. Regional bones are unremarkable. IMPRESSION: Cystic, subcutaneous left neck mass adjacent to the left mandibular body, probably representing an ep idermoid inclusion cyst. Other less likely considerations include necrotic lymph node, epidermoid/myesha moid, or ranula. Thyroid goiter. Reviewed, dictated and finalized at location K. T SETTER IMPRESSION: Cystic, subcutaneous left neck mass adjacent to the left mandibular body, proba dixon representing an epidermoid inclusion cyst. Other less likely considerations include necrotic lymph node, epidermoid/dermoid, or ranula. Thyroid goiter.
[2023-10-29 18:08] VITALS: BP 133/89; PULSE 100; RESP 15; TEMP 36.4; O2SAT 99
--- NOTE | 2023-10-29 18:13 | ED.GENADULT ---
HPI - General Adult General Chief complaint: Skin/Abscess/Foreign Body <Gt Jacques PA-C - Last Filed: 10/29/23 18:18> Stated complaint: cyst <ZHEN Arboleda Last Filed: 10/29/23 18:18> Time Seen by Provider: 10/29/23 18:13 <Gt Jacques PA-C - Last Filed: 10/29/23 18:18> Focused HPI: This is a 43-year-old male who presents to the ED with chief complaint of left submandibular swelling acutely worse over the past couple of days. Reports that he has had a marble-sized cyst to this area for several months but it grew in size rapidly over the last few days and is becoming more painful. Reports it is very tender to touch. Denies fevers, chills, nausea, vomiting GENERAL: Well-appearing, well-nourished, and in no acute distress. HEAD: Normocephalic, atraumatic. CHEST: Clear to auscultation. No respiratory distress. HEART: Regular rate and rhythm. NEURO: Alert and oriented x3. Skin: There is a sac like swelling to the left sup mandible that is golf ball-sized. It is erythematous and tender. No active drainage. No induration or surrounding erythema. Patient screened in triage and initial orders placed. Additional care and disposition to be based upon diagnostic testing and treatment. <Gt Jacques PA-C - Last Filed: 10/29/23 18:18> History of Present Illness HPI narrative: 43-year-old male reports for evaluation for a fluid-filled structure to his left chin x2 days.? Patient states he had a small cyst to this area for the past few weeks.? States he tried to pop it a few days ago and since then it has swollen up becoming more tender to the touch.? He denies fever, difficulty swallowing, swelling in his mouth, difficulty breathing, nausea or vomiting.? Denies smoking or drug use. <Uma Shin PA-C - Last Filed: 10/30/23 02:24> Related Data Allergies/adverse reactions: Allergies Allergy/AdvReac Type Severity Reaction Status Date / Time SHELLFISH Allergy Unknown Uncoded 10/29/23 19:08 BOLOGNA AdvReac Unknown Uncoded 10/29/23 19:08 <Gt Jacques PA-C - Last Filed: 10/29/23 18:18> Review of Systems Review of Systems: CONSTITUTIONAL: Denies fever, chills, or sweats. EYES: Denies visual changes, redness, or discharge. ENT: Denies rhinorrhea, congestion, sore throat, or otalgia. CARDIOVASCULAR: Denies chest pain, palpitations, or edema. RESPIRATORY: Denies cough or dyspnea. GASTROINTESTINAL: Denies abdominal pain, nausea, vomiting, or diarrhea. GENITOURINARY: Denies dysuria or hematuria. SKIN:? See HPI MUSCULOSKELETAL: Denies back pain, joint pain, or myalgia. NEUROLOGIC: Denies headache, numbness, or weakness. PSYCHIATRIC: Denies anxiety or depression. <Uma Shin PA-C - Last Filed: 10/30/23 02:24> PMFSH Past Medical History Medical History: Medical History (Updated 10/30/23 @ 00:02 by Nell Hawley) Umbilical hernia <Gt Jacques PA-C - Last Filed: 10/29/23 18:18> Surgical History Surgical History: Surgical History History of testicular surgery Hx of appendectomy Hx of cholecystectomy Hx of umbilical hernia repair <Gt Jacques PA-C - Last Filed: 10/29/23 18:18> Social History Social History: Social History Smoking packs per day: 1 Smoking cigarettes per day: 20.0 Smoking status: Current every day smoker Gender identity (if verbalized by the patient): Male <Gt Jacques PA-C - Last Filed: 10/29/23 18:18> Exam Narrative: GENERAL: Well-appearing, well-nourished, and in no acute distress. HEAD: Normocephalic, atraumatic. EYES: PERRLA and EOMI. ENT: Nares clear, no rhinorrhea or epistaxis. Mucous membranes moist. NECK: Supple. CHEST: Clear to auscultation. No respiratory distress. HEART: Regular rate and rhythm. No murmur heard. Normal peripheral pulses. ABDOMEN: Soft, nontender, nondistended, normal
--- NOTE | 2023-10-29 20:06 | ED.SKABFB ---
HPI - Skin/Abscess/Foreign Bdy General Chief complaint: Skin/Abscess/Foreign Body Stated complaint: cyst Time Seen by Provider: 10/29/23 18:13 History of Present Illness HPI narrative: 43-year-old male reports for evaluation for a fluid-filled structure to his left chin x2 days. Patient states he had a small cyst to this area for the past few weeks. States he tried to pop it a few days ago and since then it has swollen up becoming more tender to the touch. He denies fever, difficulty swallowing, swelling in his mouth, difficulty breathing, nausea or vomiting. Denies smoking or drug use. Related Data Allergies Allergy/AdvReac Type Severity Reaction Status Date / Time SHELLFISH Allergy Unknown Uncoded 10/29/23 19:08 BOLOGNA AdvReac Unknown Uncoded 10/29/23 19:08 Review of Systems Review of Systems: CONSTITUTIONAL: Denies fever, chills, or sweats. EYES: Denies visual changes, redness, or discharge. ENT: Denies rhinorrhea, congestion, sore throat, or otalgia. CARDIOVASCULAR: Denies chest pain, palpitations, or edema. RESPIRATORY: Denies cough or dyspnea. GASTROINTESTINAL: Denies abdominal pain, nausea, vomiting, or diarrhea. GENITOURINARY: Denies dysuria or hematuria. SKIN: See HPI MUSCULOSKELETAL: Denies back pain, joint pain, or myalgia. NEUROLOGIC: Denies headache, numbness, or weakness. PSYCHIATRIC: Denies anxiety or depression. [facility] Past Medical History Medical History (Updated 10/29/23 @ 21:42 by Uma Shin PA-C) Umbilical hernia Surgical History Surgical History History of testicular surgery Hx of appendectomy Hx of cholecystectomy Hx of umbilical hernia repair Social History Social History Smoking packs per day: 1 Smoking cigarettes per day: 20.0 Smoking status: Current every day smoker Gender identity (if verbalized by the patient): Male Exam Narrative: GENERAL: Well-appearing, well-nourished, and in no acute distress. HEAD: Normocephalic, atraumatic. EYES: PERRLA and EOMI. ENT: Nares clear, no rhinorrhea or epistaxis. Mucous membranes moist. NECK: Supple. CHEST: Clear to auscultation. No respiratory distress. HEART: Regular rate and rhythm. No murmur heard. Normal peripheral pulses. ABDOMEN: Soft, nontender, nondistended, normal active bowel sounds. EXTREMITIES: Normal range of motion. No edema. SKIN: Large cystic structure to the left submandibular region with mild tenderness to palpation. No active drainage, no surrounding erythema or induration. No edema intraorally. Airway patent. NEURO: No focal deficits. Alert and oriented x3 Course Vital Signs Vital signs: Vital Signs Temperature 97.6 F 10/29/23 18:08 Pulse Rate 100 10/29/23 18:08 Respiratory Rate 15 10/29/23 18:08 Blood Pressure 133/89 10/29/23 18:08 Pulse Oximetry 99 10/29/23 18:08 Oxygen Delivery Room Air 10/29/23 18:08 Temperature 98.2 F 10/29/23 20:50 Pulse Rate 82 10/29/23 20:50 Respiratory Rate 16 10/29/23 20:50 Blood Pressure 135/99 H 10/29/23 20:50 Pulse Oximetry 97 10/29/23 20:50 Oxygen Delivery Room Air 10/29/23 18:08 MDM - Skin/Abscess/Foreign Bdy MDM Narrative Medical decision making narrative: 43-year-old male reports for evaluation for a cystic structure to his submandibular region that is grown over the past 2 days. See HPI for further history. Vitals are stable. Exam is significant for the above. Airways patent, no edema intraorally. CBC without leukocytosis. Chemistries unremarkable other than elevation of AST to 76 and ALT 156. Denies abdominal pain. Remainder of LFTs are normal. ESR and CRP are within normal limits. CT soft tissue neck shows a cystic subcutaneous left neck mass adjacent to the left mandibular body probably representing an epidermal inclusion cyst. Other less likely considerations include necrotic lym
[2023-10-29] MEDS: IBUPROFEN 400 MG TABLET 800 MG PO (20:15)
[2023-10-29 20:27] LABS: Basophils Absolute Auto 0.1 K/mm3 (0.0-0.1); Basophils Percent Auto 0.7 % (0.2-1.2); Eosinophils Absolute Auto 0.1 K/mm3 (0-0.3); Eosinophils Percent Auto 1.2 % (0-4.4); Hematocrit 44.2 % (42.0-52.0); Hemoglobin 14.6 g/dL (14.0-18.0); Immature Granulocyte Absolute 0.02 K/mm3 (0.00-0.031); Immature Granulocyte Percent A 0.3 % (0-0.5); Lymphocytes Absolute Auto 2.35 K/mm3 (0.9-3.2); Lymphocytes Percent Auto 31.5 % (18.3-44.2); Mean Corpuscular Hemoglobin 28.5 pg (26-34); Mean Corpuscular Volume 86.3 fl (80-100); Mean Platelet Volume 10.7 fl (7.4-10.4); Monocytes Absolute Auto 0.7 K/mm3 (0.1-0.6); Monocytes Percent Auto 9.7 % (2.6-8.5); Neutrophils Absolute Auto 4.2 K/mm3 (1.3-6.7); Neutrophils Percent Auto 56.6 % (45.5-73.1); Platelet Count Result 197 k/mm3 (150-375); Red Blood Count 5.12 M/mm3 (4.6-6.20); Red Cell Distribution Width 13.1 % (11.5-14.5); White Blood Count 7.5 K/mm3 (4.5-10.0)
[2023-10-29 20:35] LABS: Estimated CRCL calculation 91 ml/min; Estimated Glomerular Filt Rate > 60
[2023-10-29 20:40] LABS: Alanine Aminotransferase 156 U/L (6-50); Albumin Level 4.4 g/dL (3.5-5.1); Alkaline Phosphatase 67 U/L (38-126); Anion Gap 5 mmol/L (8-16); Aspartate Amino Transferase 76 U/L (17-59); Bilirubin,Total 0.5 mg/dL (0.2-1.3); Blood Urea Nitrogen 13 mg/dL (9-20); CRP < 0.5 mg/dL (<1.0); Calcium 9.2 mg/dL (8.4-10.2); Carbon Dioxide 27 mmol/L (22-30); Chloride 106 mmol/L (98-107); Estimated CRCL calculation 108 ml/min; Estimated Glomerular Filt Rate > 60; Glucose 101 mg/dL (65-110); Potassium 3.9 mmol/L (3.4-5.0); Sodium 138 mmol/L (137-145)
[2023-10-29 20:50] VITALS: BP 135/99; PULSE 82; RESP 16; TEMP 36.8; O2SAT 97
[2023-10-29 20:54] LABS: Erythrocyte Sedimentation Rate 8 mm/hr (0-20)
[2023-10-29] MEDS: CEPHALEXIN 500 MG CAPSULE PO (21:49)
[2023-10-29 21:52] VITALS: BP 139/88; PULSE 67; RESP 15; O2SAT 100
== END 2023-10-29 21:54 | disposition home or self-care (01) ==
PROVIDERS: Emergency Provider Physician Assistant
DX: L72.0 Epidermal cyst (principal); E04.9 Nontoxic goiter, unspecified; R94.5 Abnormal results of liver function studies; F17.210 Nicotine dependence, cigarettes, uncomplicated
CPT/HCPCS: 36415; 70491; 80053; 85025; 85652; 86140; 99284; A9270; Q9967

== ENCOUNTER 2023-12-29 17:49 | Emergency (ER) | payer BC, SELFPAY ==
--- NOTE | ~2023-12-29 | XR_ITS ---
EXAM: XR knee RT min 4V DATE: 12/29/2023 18:23 HISTORY: TWISTING INJURY YESTERDAY, PAIN, CAN'T WEIGHT BEAR . COMPARISON: None available. FINDINGS: Normal mineralization. No fracture or dislocation. No lytic or blastic lesion. Mild medial compartment degenerative change. Small-volume knee joint fluid. No erosion or periosteal change. Sof t tissues within normal limits. IMPRESSION: No acute osseous finding in the right knee. Reviewed, dictated and finalized at location K.
[2023-12-29 17:53] VITALS: BP 137/84; PULSE 70; RESP 16; TEMP 36.3; O2SAT 98
--- NOTE | 2023-12-29 19:53 | ED.LOWEXIN ---
HPI - Extremity Injury (Lower) General Chief Complaint: Extremity Injury, Lower Stated Complaint: right knee pain Time Seen by Provider: 12/29/23 19:46 History of Present Illness HPI Narrative: 43-year-old male presents to the emergency department for right knee pain after an injury that occurred today. Patient states he was going down the slide with his son when he can on the slide he his right foot on the ground in his body continue to go forward. States he twisted his knee in the process and heard a pop. He is not reporting pain diffusely throughout his ED it is worse with weight-bearing. Denies other injuries acquired. Related Data Allergies Allergy/AdvReac Type Severity Reaction Status Date / Time SHELLFISH Allergy Unknown Uncoded 10/29/23 19:08 BOLOGNA AdvReac Unknown Uncoded 10/29/23 19:08 Review of Systems Review of Systems: CONSTITUTIONAL: Denies fever, chills, or sweats. EYES: Denies visual changes, redness, or discharge. ENT: Denies rhinorrhea, congestion, sore throat, or otalgia. CARDIOVASCULAR: Denies chest pain, palpitations, or edema. RESPIRATORY: Denies cough or dyspnea. GASTROINTESTINAL: Denies abdominal pain, nausea, vomiting, or diarrhea. GENITOURINARY: Denies dysuria or hematuria. SKIN: Denies rash or itching. MUSCULOSKELETAL: See HPI NEUROLOGIC: Denies headache, numbness, or weakness. PSYCHIATRIC: Denies anxiety or depression. [facility] Past Medical History Medical History (Updated 12/29/23 @ 19:57 by Uam Shin PA-C) Umbilical hernia Surgical History Surgical History History of testicular surgery Hx of appendectomy Hx of cholecystectomy Hx of umbilical hernia repair Social History Social History Smoking packs per day: 1 Smoking cigarettes per day: 20.0 Smoking status: Current every day smoker Gender identity (if verbalized by the patient): Male Exam Narrative: GENERAL: Well-appearing, well-nourished, and in no acute distress. HEAD: Normocephalic, atraumatic. NECK: Supple. CHEST: Clear to auscultation. No respiratory distress. HEART: Regular rate and rhythm. No murmur heard. Normal peripheral pulses. EXTREMITIES: RLE: Diffuse knee pain throughout the patella, medial and lateral joint line and posterior knee. Full active range of motion. No edema or ecchymosis. Tenderness with anterior-posterior drawer, valgus and varus stress. Pain with Camilla test. DP pulse 2 +. Sensation intact. No tenderness remainder of extremity. SKIN: Warm, dry, no rash. NEURO: No focal deficits. Alert and oriented x3 Course Vital Signs Vital signs: Vital Signs Temperature 97.4 F L 12/29/23 17:53 Pulse Rate 70 12/29/23 17:53 Respiratory Rate 16 12/29/23 17:53 Blood Pressure 137/84 12/29/23 17:53 Pulse Oximetry 98 12/29/23 17:53 Temperature 97.4 F L 12/29/23 17:53 Pulse Rate 70 12/29/23 17:53 Respiratory Rate 16 12/29/23 17:53 Blood Pressure 137/84 12/29/23 17:53 Pulse Oximetry 98 12/29/23 17:53 MDM - Extremity Injury (Lower) MDM Narrative Medical decision making narrative: 43-year-old male presents to emergency department for right knee pain after a twisting him mechanism injury that occurred today. See HPI for further history. Vitals stable. Exam significant for the above. He is neurovascularly intact. X-rays of the knee are unremarkable. Patient placed in a knee immobilizer and provided with crutches and orthopedic follow-up. Encouraged rice, Tylenol ibuprofen. Return precautions provided. He is agreeable to plan verbalized understanding. Discharged in stable condition. Discharge Plan Discharge Clinical Impression: Knee pain, right Qualifiers: Chronicity: acute Qualified Code(s): M25.561 - Pain in right knee Patient Disposition: Home, Self-Care Condition: Stable Instructions: Antibiotic Form, Kne
== END 2023-12-29 20:25 | disposition home or self-care (01) ==
LOC: ANHED 20:14
PROVIDERS: Emergency Provider Physician Assistant
DX: S89.91XA Unspecified injury of right lower leg, initial encounter (principal); F17.210 Nicotine dependence, cigarettes, uncomplicated; Z90.49 Acquired absence of other specified parts of digestive tract; X50.1XXA Overexertion from prolonged static or awkward postures, initial encounter
CPT/HCPCS: 73564; 99283

== ENCOUNTER 2024-01-08 10:02 | Outpatient (CLI) | payer BC, MEDICAID, SELFPAY ==
--- NOTE | ~2024-01-08 | MR_ITS ---
MRI of the right knee Clinical history: Injury Technique: Coronal proton density and proton density-weighted images, sagittal proton-density and T2 fat-sat images, and axial proton-density fat-saturated images were acquired. Findings: Anterior and posterior cruciate ligaments are intact. Medial collateral ligament and the la teral collateral ligament complex are intact. Popliteus tendon is intact. There is complex tearing of the body segment of the medial meniscus, probably extending into the post erior horn. No lateral meniscal tear seen. Articular cartilage is well preserved throughout the knee. Bone marrow signals are unremarkable. Extensor mechanism is intact. No significant joint effusion or Gatica's cyst. Impression: Complex tearing of the posterior horn and body of the medial meniscus. Reviewed, dictated and finalized at location M. Impression: Complex tearing of the posterior horn and body of the medial meniscus.
== END 2024-01-08 10:03 ==
PROVIDERS: PCP Orthopaedic Surgery; Visit Provider Orthopaedic Surgery
DX: S83.231A Complex tear of medial meniscus, current injury, right knee, initial encounter (principal); X58.XXXA Exposure to other specified factors, initial encounter
CPT/HCPCS: 73721

== ENCOUNTER 2024-01-15 08:57 | Outpatient (CLI) | payer BC, MEDICAID, SELFPAY ==
--- NOTE | 2024-01-15 09:00 | ECG_ITS ---
SEE SCANNED COPY FOR CONFIRMED REPORT MTDD
== END 2024-01-15 08:58 | disposition home or self-care (01) ==
LOC: ANHSURGERY 09:02
PROVIDERS: PCP Emergency Medicine; Visit Provider Orthopaedic Surgery
DX: Z01.818 Encounter for other preprocedural examination (principal); F17.210 Nicotine dependence, cigarettes, uncomplicated
CPT/HCPCS: 93005

== ENCOUNTER 2024-01-17 00:42 | Day surgery (SDC) | payer BC, MEDICAID, SELFPAY ==
[2024-01-14 15:45] VITALS: BMI 35.2
--- NOTE | 2024-01-14 15:49 | PC.NURSE ---
Report to the Outpatient Waiting Room, entrance under the green pavilion located off [facility], at time 7:00 on date 01/17/24. Planned Procedure Time: 9:00. Time changes happen often and if your time is changed the preop area will call you the afternoon before. - You and your visitor will be asked to self-screen and do not enter if you have any COVID symptoms. - A mask is optional within the hospital at this time. Patients may have clear liquids (water, carbonated beverages, clear teas, apple juice) until 3 hours prior to surgery (6:00) with a maximum of 20 ounces. - No food from midnight until time of surgery Take the following medications with a SIP of water the morning of surgery: PAIN PILL IF NEEDED DO NOT STOP ANY OF YOUR OTHER PRESCRIPTION MEDICATIONS PRIOR TO SURGERY ?EXCEPT THE FOLLOWING Medications to discontinue per physician: IBUPROFEN Date to take last dose: PER DR. HAYWOOD Please no make-up, nail wolof, hairspray, perfume, deodorant, or body powder the day of surgery. No jewelry (including any body piercings) or valuables the day of surgery, leave them at home. Please take a shower or bath the night before, or the morning of, surgery with an antibacterial soap. Wear comfortable, loose fitting clothing. - Jewelry must be removed prior to entering the operating room. Rings and piercings that are not removed may be cut off. - The hospital will not accept responsibility for valuables. - Please leave all valuables, including medications, at home the day of surgery. If you are going home after surgery, a licensed road oiling truck driver must drive you home. - NO public transportation without another adult if you receive anesthesia. - We recommend that an adult stay with you for 24 hours following discharge. - We also recommend that you do not drive, make important decision, drink alcoholic beverages, or take any drugs that were not prescribed by your health care provider for at least 24 hours after your discharge time. Follow any additional instructions given to you from your surgeon. If you or anyone in your household have experienced Covid symptoms in the past week, please notify your surgeon or the nurse liaison at the phone number below for possible testing. Telephone instructions given to PT Jason PEREZ and asked if any additional questions and then verbalized understanding. Patient advised to call surgeon office or pre surgery nurse liaison [phone] if any additional questions.
[2024-01-17] VITALS (7 sets, daily range): BP systolic 118–132; BP diastolic 84–96; PULSE 74–100; RESP 14–16; TEMP 36.2–36.6; O2SAT 95–98
--- NOTE | 2024-01-17 07:17 | WPDHPUPDATE1 ---
History and Physical Update Update Date/Time: 01/17/24 07:17 History and Physical has been reviewed, including an updated exam of the patient. There are NO changes in the patient's condition. Risks, benefits, and alternatives have been discussed and questions answered. Patient agrees to proceed with procedure.
[2024-01-17] MEDS: ACETAMINOPHEN 500 MG TABLET 1000 MG PO (07:40)
[2024-01-17] MEDS: LACTATED RINGERS 1,000 ML 30 ML IV CONT (07:40)
[2024-01-17] MEDS: CELECOXIB 200 MG CAPSULE PO (07:40)
--- NOTE | 2024-01-17 08:27 | WPDANESEPPF ---
Anes - Initial Pre Proc Eval Procedure: Operation Date: 01/17/24 09:00 Proposed Procedures p Right Knee Arthroscopy - Danny Cooley MD Date/Time: 01/17/24 08:27 Surgeon: Danny Cooley MD Pre Op Diagnosis: Rt Knee medial Meniscus Tear Patient Data Age: 43 Gender: M Height: 1.83 m Weight: 122.9 kg Last Vital Signs Temp 97.8 F 01/17/24 07:40 Pulse 100 01/17/24 07:40 Resp 14 01/17/24 07:40 BP 118/92 H 01/17/24 07:40 Pulse Ox 98 01/17/24 07:40 O2 Del Method Room Air 01/17/24 07:40 Allergies Allergy/AdvReac Type Severity Reaction Status Date / Time Iodinated Contrast Media Allergy Unknown Unknown Verified 01/17/24 07:09 shellfish derived Allergy Unknown Unknown Verified 01/17/24 07:09 BOLOGNA AdvReac Unknown Uncoded 01/14/24 15:44 Home Medications Medication Instructions Recorded Confirmed Type acetaminophen 500 mg tablet 1,000 mg PO TID PRN tae 7 days #42 01/15/23 01/14/24 Rx tabs ibuprofen 800 mg tablet 800 mg PO TID PRN pain 7 days #21 01/15/23 01/14/24 Rx tabs cyclobenzaprine 10 mg tablet 10 mg PO BID PRN Pain 01/07/24 01/14/24 History tramadol 50 mg tablet 50 mg PO Q8H PRN Pain 01/07/24 01/14/24 History chlorhexidine gluconate 4 % 1 applic topical ONCE #237 mL 01/14/24 01/14/24 Rx topical liquid (Hibiclens) hydrocodone 5 mg-acetaminophen 325 1 tablet PO Q12H PRN pain #20 tabs 01/17/24 Rx mg tablet Patient hx anesthesia problems: none Family hx anesthesia problems: none Results Review: All pre-operative results and documents have been reviewed as part of the pre-operative evaluation. [facility] Past Medical History Medical History Umbilical hernia Surgical History Surgical History History of testicular surgery Hx of appendectomy Hx of cholecystectomy Hx of umbilical hernia repair Family History Family History (Updated 01/03/24 @ 08:47 by Zari Can CMA) Unknown Asthma Social History Social History (Updated 01/03/24 @ 08:48 by Zari Can CMA) Social History: caffeine use Smoking packs per day: 1.5 Smoking cigarettes per day: 30.0 Years smoked: 17 Smoking pack-years: 25.50 Smoking status: Former smoker Tobacco type: cigarettes Smokeless tobacco user: chewing tobacco Smoking end date: 09/23/20 Additional smoking assessment comments: QUIT CIGARETTES, NOW CHEW Alcohol intake: never Substance use: former Substance use type: marijuana Last use: 09/23/22 Living arrangements: with family Occupation/Education: occupation Additional occupation/education comments: conductor- [employer] Gender identity (if verbalized by the patient): Male Spiritual care concerns: No Anes - Eval Final PreProcedure Day of Procedure 01/17/24 08:27 Patient weight: obese Heart: regular rate and rhythm Lungs: clear to auscultation Airway: Mallampati scale class II Neurological: alert and oriented Last oral intake: >/= 8 hours ASA classification: II Emergent: no Anesthetic plan: proceed Anesthesia type and monitoring: general LMA and standard monitoring Results Review: All pre-operative results and documents have been reviewed as part of the pre-operative evaluation. Long time ex smoker, quit 2020, now chews tobacco. Informed Consent: The patient's anesthetic plan and its attendant risks and benefits were discussed with the patient/family/POA. Questions were solicited and answers provided to the satisfaction of the patient/family/POA.
[2024-01-17] MEDS: ceFAZolin 3 GM/D5W 100 ML 100 ML IVPB (08:46)
[2024-01-17] MEDS: BUPivacaine HCL 0.5% 10 ML AMP 30 ML INFILTRATE (09:06)
--- NOTE | 2024-01-17 09:42 | W.PM.PROC2 ---
Procedure Note - Detailed Date of Procedure 01/17/24 Pre-op Diagnosis Rt Knee medial Meniscus Tear Post-op Diagnosis Same Procedure Performed RIGHT KNEE SCOPE Surgeon Danny Cooley MD Anesthesia General Description of Procedure PATIENT WAS TAKEN TO THE OR. THE RIGHT LEG WAS PREPPED AND DRAPED STERILE. TROCARS WERE PLACED IN THE USUAL FASHION. CAMERA WAS INTRODUCED. THERE WAS CHONDROMALACIA TO THE PATELLA FEMORAL JOINT. THERE WAS A LOT OF SYNOVITIS IN ALL COMPARTMENTS. THE MEDIAL COMPARTMENT SHOWED CHONDROMALACIA TO THE MEDIAL FEMORAL CONDYLE. A SHAVER WAS USED TO PREFORM A CHONDROPLASTY. THERE WAS A LARGE COMPLEX MEDIAL MENISCUS TEAR. THE TEAR WAS RESECTED WITH A BITER AND A SHAVER DOWN TO A SMOOTH BASE. THE ACL WAS INTACT. THE LATERAL MENISCUS WAS NOT TORN. THE LATERAL COMPARTMENT HAD MINIMAL CHONDROMALACIA. CHONDROPLASTY WAS PREFORMED. A SYNOVECTOMY WAS PREFORMED WELL. THE PATELLO FEMORAL JOINT UNDERWENT CHONDROPLASTY. THERE WAS GRADE 2 CHONDROMALACIA IN PART OF THE TROCHLEA AND PART OF THE PATELLA. SYNOVECTOMY WAS PREFORMED IN THE SUPERIOR MEDIAL COMPARTMENT. THE WOUNDS WERE APPROXIMATED WITH 4.0 NYLON. STERILE DRESSING WAS APPLIED. PATIENT WAS EXTUBATED. Estimated Blood Loss 5 Complications No immediate complications Condition Stable Disposition PACU
[2024-01-17] MEDS: fentaNYL CITRATE INJ (*CRX) 100 MCG/2 ML VIAL 25 MCG IV PUSH ×4 (10:12→10:22)
[2024-01-17] MEDS: HYDROmorphone HCL INJ (*CRX) 1 MG/ML SYR 0.25 MG IV PUSH ×2 (10:26→10:32)
[2024-01-17] MEDS: oxyCODONE HCL (*CRX) 5 MG TAB IR PO (11:08)
== END 2024-01-17 11:25 | disposition home or self-care (01) ==
PROVIDERS: PCP Emergency Medicine; Visit Provider Orthopaedic Surgery
PROC: (CPT 29870; principal; 2024-01-17 09:00)
DX: S83.231A Complex tear of medial meniscus, current injury, right knee, initial encounter (principal); M65.861 Other synovitis and tenosynovitis, right lower leg; M22.41 Chondromalacia patellae, right knee; X50.0XXA Overexertion from strenuous movement or load, initial encounter; F17.220 Nicotine dependence, chewing tobacco, uncomplicated; E66.9 Obesity, unspecified; Z68.36 Body mass index [BMI] 36.0-36.9, adult
CPT/HCPCS: 29881; 29876; A9270; J0690; J1100; J1170; J2250; J2405; J2704; J3010; J7120

== ENCOUNTER 2024-03-31 15:30 | Outpatient (RCR) | payer BC, MEDICAID, SELFPAY ==
--- NOTE | 2024-02-03 10:47 | OPREHPOC ---
Outpatient Therapy Plan of Care This is a Multidisciplinary Plan of Care that may contain components documented by all disciplines (PT, OT, and ST.) PT Problem 1 PT Problem #1 Knowledge Deficit PT Goal 1 Goal *indep with HEP Target Visit 10 PT Problem 2 PT Problem #2 Pain PT Goal 1 Goal 1* pt report pain of 4/10 at worst 2* self assessment with LE functional scale of 30% limitation in activity 3* with sleeping no awakening due to knee pain Target Visit 10 PT Problem 3 PT Problem #3 Impaired Flexibility PT Goal 1 Goal increase flexibility of R knee, to improve mobility and gait pattern sitting active: 1* extension 0' 2* flexion 120' Target Visit 10 PT Problem 4 PT Problem #4 Impaired Strength PT Goal 1 Goal increase strength of R knee/hip, to improve mobility and return to full work and home tasks: 1* mat strengthening x 20 reps 2* single leg standing x 10 seconds 3* 2 minute walking test distance 450' 4* pt ambulate with good weight shift onto R LE and neutral position of R hip/ no ER hip Target Visit 10
--- NOTE | 2024-02-03 10:47 | PTOPEVAL1 ---
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 He has stopped using an assistive device and is doing some exercises from office. LE functional scale of 85% limitation in activity. 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 With the evaluation: decreased R knee extension and flexion ROM and strength; pain increases with end range of knee extension motion; 2 minute walking test distance of 340' with increase knee throbbing and limp on R LE; on stairs, requires use of one hand railing and single step pattern; there is edema over R knee with the circumferential measurements. Skilled PT services are indicated for modalities to decrease pain and edema over R knee, therapeutic exercises to increase knee ROM and strength, with simulated
--- NOTE | 2024-02-21 10:53 | PCPTNOTE ---
Called and canceled, not feeling well this date. AKS
--- NOTE | 2024-03-06 09:37 | PTOPPROG ---
Assessment and note entered by Rylie Padilla, PT Progress report Assessment Status Progress Diagnosis s/p R knee arthroscopy Onset 01-17-24 Subjective Information was doing really good until few weeks ago when knee popped, hurt since then; feel like should be farther along than I am; have dr appt for end of March, going to call and get a sooner appt to check my knee; still have problems on stairs- take a while to do them; PAIN: range of 5-8/10 in the past week awaken from sleeping due to knee pain 1-4x/night decrease pain: sit, tylenol, ice increase pain: walking about 10 minutes; stairs on stairs feel like knee is unstable and going to give out Assessment PT Clinical Summary Loki has received 9 PT sessions. Compared to the initial evaluation: pain rating from 5-9/10 to 5-8/10; self assessment with LE functional scale from 85 to 80% limitation in activity level; reported sleeping awaken from sleep 3-5x to 1-4x/night and walking 1/2 block to 10 minutes tolerance; increase strength of R LE but still limited: with mat exercises 15 reps and single leg standing 4 seconds; 2 minute walking test distance from 340' to 385'; ROM improved from (-5')/110' to 0-120'; continues to have increased pain with end range of extension; with walking, tends to ER hip for comfort to his knee; on stairs has increase time with alternating step pattern with reports of knee going to give out; education for home exercises and correct gait pattern. The goals were partially achieved. Continue PT treatment. He is going to call for a follow up appt with his . Plan of Care Interventions Electrical Stimulation,Hot Pack/Cold Pack, Intermittent Compression,Manual Therapy,Neuro Re- education,Patient Education,Therapeutic Activities,Therapeutic Exercise,Other Other Interventions taping PT Services Indicated Yes Treatment Frequency and 1-2 x/wk for 7 more visits Duration These treatments will address the objective and functional deficits as defined above. The patient will be advanced safely and appropriately in order for the patient to progress towards his/her prior level of function. Additional exercises will be introduced and as well as a comprehe
--- NOTE | 2024-03-06 09:38 | OPREHPOC ---
Outpatient Therapy Plan of Care This is a Multidisciplinary Plan of Care that may contain components documented by all disciplines (PT, OT, and ST.) PT Problem 1 PT Problem #1 Knowledge Deficit PT Goal 1 Goal *indep with HEP Target Visit 10 Progress Met Comment 03-06-24 progress goal met continue towards goal PT Goal 2 Target Visit 16 PT Problem 2 PT Problem #2 Pain PT Goal 1 Goal 1* pt report pain of 4/10 at worst 2* self assessment with LE functional scale of 30% limitation in activity 3* with sleeping no awakening due to knee pain Target Visit 10 Progress Not Met Comment 03-06-24 progress goals not met, improved with #1 to 8/10; #2 80%; #3 1-4x/night continue towards goals PT Goal 2 Target Visit 16 PT Problem 3 PT Problem #3 Impaired Flexibility PT Goal 1 Goal increase flexibility of R knee, to improve mobility and gait pattern sitting active: 1* extension 0' 2* flexion 120' Target Visit 10 Progress Met Comment 03-06-24 progress goals met discontinue goal PT Problem 4 PT Problem #4 Impaired Strength PT Goal 1 Goal increase strength of R knee/hip, to improve mobility and return to full work and home tasks: 1* mat strengthening x 20 reps 2* single leg standing x 10 seconds 3* 2 minute walking test distance 450' 4* pt ambulate with good weight shift onto R LE and neutral position of R hip/ no ER hip Target Visit 10 Progress Not Met Comment 03-06-24 progress goals not met;
--- NOTE | 2024-03-12 08:41 | PCPTNOTE ---
No call no show reason unknown. AKS
--- NOTE | 2024-03-20 11:35 | PCPTNOTE ---
Pt canceled stating he can't make it today.
--- NOTE | 2024-04-03 15:51 | PCPTNOTE ---
pt did not show for today's reeval appt; called and left voice mail message. He has used 12/16 visits, so next appt can be treatment,
--- NOTE | 2024-04-27 16:10 | PCPTNOTE ---
Patient was a No Show/No Call for today's Progress note appointment.
--- NOTE | 2024-05-04 15:01 | PCPTNOTE ---
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 He did not show for 4 and called/canceled 2 appointments. Therefore, he will be discharged from PT at this time. The goals were not addressed.
== END 2024-05-03 23:59 | disposition home or self-care (01) ==
LOC: ANHPT 15:30
PROVIDERS: PCP Emergency Medicine; Visit Provider Orthopaedic Surgery
DX: S89.91XD Unspecified injury of right lower leg, subsequent encounter (principal)
CPT/HCPCS: 97014; 97016; 97035; 97110; 97112; 97116; 97140; 97161; 97530; 97750; G0283